=== PATIENT | male | born 1960 | race Caucasian/White ===

== ENCOUNTER 2017-01-30 18:00 | Inpatient (IN) | payer OTHER ==
[~2017-01-30] VITALS: Ht 188 cm; Wt 135.7 kg
[2017-01-30] MEDS ORDERED: SODIUM CHLORIDE FLUSH 10ML SYR IVF ONE (18:30)
[2017-01-30] MEDS ORDERED: SODIUM CHLORIDE 0.9% 1,000ML IVBOLUS ONE (18:30)
[2017-01-30 18:39] LABS: HEMATOCRIT 39.5 % (39.2-51.8); HEMOGLOBIN 12.9 g/dL (13.7-18.0); WHITE BLOOD COUNT 7.4 x10^3/uL (3.4-10)
[2017-01-30 18:50] LABS: BLOOD UREA NITROGEN 50 mg/dL (7-18)
[2017-01-30] MEDS ORDERED: SODIUM CHLORIDE 0.9% 1,000 ML IV ONE (19:46)
[2017-01-30] MEDS ORDERED: SODIUM CHLORIDE FLUSH 10ML SYR IVF PRN (20:00)
[2017-01-30] MEDS ORDERED: BENA20TA2 PO (20:02)
[2017-01-30] MEDS ORDERED: METO-99 PO (20:06)
[2017-01-30] MEDS ORDERED: SODIUM CHLORIDE 0.9% 1,000 ML IV SCH (20:31)
[2017-01-30 20:55] VITALS: BP 99/63
[2017-01-30 20:56] VITALS: BP 99/63
[2017-01-30] MEDS ORDERED: DIPHENHYDRAMINE 25 MG CAPSULE PO PRN (21:00)
[2017-01-30] MEDS ORDERED: DOCUSATE 100 MG CAPSULE PO PRN (21:00)
[2017-01-30] MEDS ORDERED: ONDANSETRON ODT 4 MG PO PRN (21:00)
[2017-01-30] MEDS ORDERED: INSULIN ASPART 100 UNITS/ML, PEN SQ-INSULIN SCH (21:00)
[2017-01-30] MEDS ORDERED: ACETAMINOPHEN 325 MG TABLET PO PRN (21:00)
[2017-01-30] MEDS ORDERED: HEPARIN 5,000 UNITS/ML, 1ML SQ SCH (21:00)
[2017-01-30 21:45] LABS: IS PT STATUS REG ER OR PRE ER? NO
== END 2017-01-31 02:31 | disposition short-term general hospital (02) | DRG 73 ==
LOC: ED 20:43 → EDIP 20:51 → 4EST 20:53
PROVIDERS: ADMIT Hospitalist; ATTEND Hospitalist
DX: G90.9 Disorder of the autonomic nervous system, unspecified (principal); N17.0 Acute kidney failure with tubular necrosis; G62.9 Polyneuropathy, unspecified; K76.0 Fatty (change of) liver, not elsewhere classified; I10 Essential (primary) hypertension; E78.5 Hyperlipidemia, unspecified; E86.0 Dehydration; F10.229 Alcohol dependence with intoxication, unspecified; I44.0 Atrioventricular block, first degree; I71.9 Aortic aneurysm of unspecified site, without rupture; I95.2 Hypotension due to drugs; R73.03 Prediabetes; Y90.8 Blood alcohol level of 240 mg/100 ml or more; Z80.0 Family history of malignant neoplasm of digestive organs; Z86.79 Personal history of other diseases of the circulatory system
CPT/HCPCS: 36415; 70450; 71010; 76700; 80048; 80307; 82040; 82607; 82962; 83036; 84484; 85025; 85379; 93005; J1644; J7030